=== PATIENT | female | born 1955 | race Caucasian/White ===

== ENCOUNTER 2020-11-09 15:43 | Inpatient (IN) | payer MEDICARE, SELFPAY ==
[2020-11-09 17:13] LABS: Hemoglobin 15.9 g/dL (12.0-16.0); White Blood Cell (WBC) Count 7.8 thou/uL (4.8-10.8)
[2020-11-09 17:35] LABS: ALT (SGPT) 86 U/L (8-55); AST (SGOT) 113 U/L (5-34); Alkaline Phosphatase 128 U/L (40-110); Anion Gap 16 mmol/L (10-20); BUN (Urea Nitrogen) 11 mg/dL (9.8-20.1); Bilirubin, Total 4.1 mg/dL (0.2-1.2); CK (CPK) 98 U/L (29-168); Calc. Creatinine Clearance 0 mL/min (70-130); Carbon Dioxide 25 mmol/L (23-31); Chloride 98 mmol/L (98-107); Globulin 4.1 g/dL (2.4-3.5); Glucose 188 mg/dL (80-115); Potassium 4.1 mmol/L (3.5-5.1); Protein, Total 8.1 g/dL (5.8-8.1); Sodium 135 mmol/L (136-145)
[2020-11-09 17:44] LABS: #Lymphocytes 0.9 thou/uL (1.20-3.40); #Monocytes 0.5 thou/uL (0.11-0.59); #Neutrophils 6.4 thou/uL (1.40-6.50); %Basophils 0.4 % (0.0-1.0); %Eosinophils 0.4 % (0.0-10.0); %Monocytes 5.9 % (0.0-10.0); %Neutrophils 82.3 % (42.0-75.0); MDiff Complete? YES; Macrocytosis SLIGHT = 6-15 cells (100X) (0-5/hpf); Mean Corpuscular HGB CONC 34.7 g/dL (32.0-36.0); Mean Corpuscular Hemoglobin 36.9 pg (27.0-31.0); Mean Platelet Volume 8.6 fL (7.4-10.4); Platelet Count 104 thou/uL (130-400); Platelet Morphology Comment Appears Decreased; RBC Distribution Width 12.8 % (11.5-14.5)
[2020-11-09] MEDS ORDERED: Ketorolac Tromethamine 30 MG/ML VIAL ONE (19:26)
[2020-11-09] MEDS ORDERED: Morphine 4 MG/ML VIAL ONE (19:26)
[2020-11-09] MEDS ORDERED: hydrALAZINE 20 MG/ML VIAL SLOW IVP PRN (19:31)
[2020-11-09] MEDS ORDERED: Dextrose 50% Abboject 50 ML SYRINGE SLOW IVP PRN (19:31)
[2020-11-09] MEDS ORDERED: Ondansetron PF 4 MG/2 ML Vial IVP PRN (19:31)
[2020-11-09] MEDS ORDERED: Morphine 2 MG/ML VIAL SLOW IVP PRN (19:31)
[2020-11-09] MEDS ORDERED: Dextrose 5% in Water 1,000 ML IV PRN (19:31)
[2020-11-09] MEDS ORDERED: Cyclobenzaprine 10 MG TAB PO PRN (19:37)
[2020-11-09] MEDS ORDERED: traMADol HCl 50 MG TAB PO PRN (19:37)
[2020-11-09 20:42] LABS: Magnesium 1.5 mg/dL (1.6-2.6); Phosphorus 3.1 mg/dL (2.3-4.7)
[2020-11-09] MEDS: Sodium Chloride 0.9% 1,000 ML IV SCH (21:44)
[2020-11-09] MEDS: Senokot S 8.6-50 MG TAB PO SCH (21:47)
[2020-11-09] MEDS: Famotidine 20 MG TAB PO SCH (21:47)
[2020-11-10] MEDS: traMADol HCl 50 MG TAB PO SCH ×5 (00:05→23:28)
[2020-11-10] MEDS: Acetaminophen 500 MG TAB PO SCH ×5 (00:06→23:28)
[2020-11-10] MEDS: Ketorolac Tromethamine 30 MG/ML VIAL IVP SCH ×5 (00:06→23:28)
[2020-11-10 02:30] LABS: SARS-CoV-2 NAA Rapid Test Not Detected (NotDetected)
[2020-11-10] MEDS: Sodium Chloride 0.9% 1,000 ML IV SCH ×3 (04:05→13:16)
[2020-11-10 04:47] LABS: #Basophils 0.1 thou/uL (0.0-0.2); #Lymphocytes 1.9 thou/uL (1.20-3.40); #Monocytes 0.4 thou/uL (0.11-0.59); #Neutrophils 3.7 thou/uL (1.40-6.50); %Basophils 0.9 % (0.0-1.0); %Eosinophils 0.4 % (0.0-10.0); %Lymphocytes 31.5 % (21.0-51.0); %Monocytes 6.5 % (0.0-10.0); %Neutrophils 60.6 % (42.0-75.0); Hemoglobin 12.3 g/dL (12.0-16.0); Mean Corpuscular HGB CONC 34.8 g/dL (32.0-36.0); Mean Corpuscular Hemoglobin 36.8 pg (27.0-31.0); Mean Platelet Volume 8.4 fL (7.4-10.4); Platelet Count 100 thou/uL (130-400); RBC Distribution Width 12.8 % (11.5-14.5); Red Blood Cell (RBC) Count 3.34 mill/uL (4.20-5.40); White Blood Cell (WBC) Count 6.1 thou/uL (4.8-10.8)
[2020-11-10 05:10] LABS: Phosphorus 4.1 mg/dL (2.3-4.7)
[2020-11-10 05:13] LABS: Anion Gap 12 mmol/L (10-20); BUN (Urea Nitrogen) 15 mg/dL (9.8-20.1); Calc. Creatinine Clearance 90 mL/min (70-130); Calcium 8.4 mg/dL (7.8-10.44); Carbon Dioxide 25 mmol/L (23-31); Chloride 101 mmol/L (98-107); Glucose 151 mg/dL (80-115); Magnesium 1.7 mg/dL (1.6-2.6); Potassium 4.7 mmol/L (3.5-5.1); Sodium 133 mmol/L (136-145)
[2020-11-10] MEDS: Polyethylene Glycol 3350 17 GM Packet PO SCH (08:13)
[2020-11-10] MEDS: Senokot S 8.6-50 MG TAB PO SCH ×2 (08:13→20:28)
[2020-11-10] MEDS: Famotidine 20 MG TAB PO SCH ×2 (08:13→20:28)
[2020-11-10] MEDS ORDERED: Magnesium Sulfate 3 GM in Sodium Chloride 0.9% 100 ML IVPB SCH (09:00)
[2020-11-10] MEDS ORDERED: levETIRAcetam 500 MG TAB PO SCH ×2 (09:00)
[2020-11-10] MEDS ORDERED: Fentanyl 100 MCG/2 ML VIAL ONE (10:38)
[2020-11-10] MEDS: levETIRAcetam 500 MG TAB PO SCH ×2 (10:57→20:28)
[2020-11-10] MEDS ORDERED: Tranexamic Acid 1,000 MG/10 ML VIAL ONE (11:46)
[2020-11-10] MEDS ORDERED: PROPOFOL 200 MG/20 ML VIAL ONE (12:08)
[2020-11-10] MEDS ORDERED: Lidocaine 1% PF 5 ML VIAL ONE (12:08)
[2020-11-10] MEDS ORDERED: Glycopyrrolate 0.2 MG/ML 5 ML SYRINGE ONE (12:08)
[2020-11-10] MEDS ORDERED: Rocuronium Bromide 10 MG/ML (10ML VIAL) ONE (12:08)
[2020-11-10] MEDS ORDERED: Dexamethasone 20 MG/5 ML VIAL ONE (12:08)
[2020-11-10] MEDS ORDERED: PHENYLEPHRINE-NS 100 MCG/ML 10 ML SYRINGE ONE (12:08)
[2020-11-10] MEDS ORDERED: Ondansetron HCl/PF 4 MG/2 ML Vial IVP PRN (14:26)
[2020-11-10] MEDS ORDERED: Promethazine HCl 25 MG/ML VIAL IM PRN (14:26)
[2020-11-10] MEDS ORDERED: Promethazine HCl 25 MG/ML VIAL SLOW IVP PRN (14:26)
[2020-11-10] MEDS ORDERED: Vancomycin 1 GM in Premix Bag 1 BAG IVPB SCH (21:00)
[2020-11-10] MEDS: CEFAZOLIN 2 GM in Premix Bag 1 BAG IVPB SCH (22:19)
[2020-11-11 00:17] LABS: Bacteria/HPF None Seen HPF (None Seen); Bilirubin Negative (Negative); Blood, Urine Trace (Negative); Clarity Clear (Clear); Glucose, Urine (Dipstick) Normal (Negative); Ketone, Urine Negative (Negative); Leukocyte Negative Leu/uL (Negative); Mucous/LPF 2+ LPF (<2+); Nitrite Negative (Negative); Protein, Urine (Dipstick) 30 mg/dL (Neg-Trace); Specific Gravity, Urine 1.043 (1.002-1.036); Squamous Epithelial 0-3 HPF (0-3); Urobilinogen 6 mg/dL (Less than 2)
[2020-11-11 00:19] LABS: Urine Culture Reflex Yes Yes
[2020-11-11 05:27] LABS: #Lymphocytes 1.7 thou/uL (1.20-3.40); #Monocytes 0.7 thou/uL (0.11-0.59); #Neutrophils 4.8 thou/uL (1.40-6.50); %Basophils 0.2 % (0.0-1.0); %Eosinophils 0.1 % (0.0-10.0); %Lymphocytes 23.7 % (21.0-51.0); %Monocytes 10.2 % (0.0-10.0); %Neutrophils 65.9 % (42.0-75.0); Hemoglobin 9.5 g/dL (12.0-16.0); Mean Corpuscular HGB CONC 33.7 g/dL (32.0-36.0); Mean Corpuscular Hemoglobin 35.6 pg (27.0-31.0); Mean Platelet Volume 8.5 fL (7.4-10.4); Platelet Count 121 thou/uL (130-400); RBC Distribution Width 13.1 % (11.5-14.5); Red Blood Cell (RBC) Count 2.65 mill/uL (4.20-5.40); White Blood Cell (WBC) Count 7.3 thou/uL (4.8-10.8)
[2020-11-11] MEDS: traMADol HCl 50 MG TAB PO SCH ×3 (05:38→18:30)
[2020-11-11] MEDS: Acetaminophen 500 MG TAB PO SCH ×3 (05:38→18:22)
[2020-11-11] MEDS: CEFAZOLIN 2 GM in Premix Bag 1 BAG IVPB SCH (05:39)
[2020-11-11] MEDS: Ketorolac Tromethamine 30 MG/ML VIAL IVP SCH ×3 (05:39→18:29)
[2020-11-11 05:50] LABS: Anion Gap 10 mmol/L (10-20); BUN (Urea Nitrogen) 23 mg/dL (9.8-20.1); CK (CPK) 217 U/L (29-168); Calc. Creatinine Clearance 76 mL/min (70-130); Calcium 7.8 mg/dL (7.8-10.44); Carbon Dioxide 24 mmol/L (23-31); Chloride 104 mmol/L (98-107); Glucose 135 mg/dL (80-115); Magnesium 1.9 mg/dL (1.6-2.6); Phosphorus 3.8 mg/dL (2.3-4.7); Potassium 5.2 mmol/L (3.5-5.1); Sodium 133 mmol/L (136-145)
[2020-11-11] MEDS ORDERED: Sodium Chloride 0.9% 500 ML IV SCH (07:00)
[2020-11-11] MEDS: Polyethylene Glycol 3350 17 GM Packet PO SCH (08:56)
[2020-11-11] MEDS: Senokot S 8.6-50 MG TAB PO SCH ×2 (08:56→20:31)
[2020-11-11] MEDS: Famotidine 20 MG TAB PO SCH ×2 (08:56→20:31)
[2020-11-11] MEDS: levETIRAcetam 500 MG TAB PO SCH ×2 (08:57→20:31)
[2020-11-11] MEDS: Dextrose 5 % And 0.9 % NaCl 1,000 ML IV SCH (17:29)
[2020-11-12] MEDS: Acetaminophen 500 MG TAB PO SCH ×3 (00:01→12:08)
[2020-11-12] MEDS: Dextrose 5 % And 0.9 % NaCl 1,000 ML IV SCH ×2 (00:01→07:15)
[2020-11-12] MEDS: traMADol HCl 50 MG TAB PO SCH ×3 (00:02→12:12)
[2020-11-12] MEDS: Ketorolac Tromethamine 30 MG/ML VIAL IVP SCH ×2 (00:02→05:22)
[2020-11-12] MEDS: Famotidine 20 MG TAB PO SCH ×2 (09:20→21:10)
[2020-11-12] MEDS: levETIRAcetam 500 MG TAB PO SCH ×2 (09:20→21:10)
[2020-11-12] MEDS: Senokot S 8.6-50 MG TAB PO SCH ×2 (09:22→21:10)
[2020-11-12] MEDS: Polyethylene Glycol 3350 17 GM Packet PO SCH (09:22)
[2020-11-12 10:38] LABS: #Eosinphils 0.1 thou/uL (0.0-0.7); #Lymphocytes 2.1 thou/uL (1.20-3.40); #Monocytes 0.5 thou/uL (0.11-0.59); #Neutrophils 3.6 thou/uL (1.40-6.50); %Basophils 0.6 % (0.0-1.0); %Eosinophils 1.3 % (0.0-10.0); %Lymphocytes 32.8 % (21.0-51.0); %Monocytes 8.2 % (0.0-10.0); %Neutrophils 57.1 % (42.0-75.0); Hemoglobin 8.2 g/dL (12.0-16.0); Mean Corpuscular Hemoglobin 37.8 pg (27.0-31.0); Mean Platelet Volume 8.2 fL (7.4-10.4); Platelet Count 123 thou/uL (130-400); RBC Distribution Width 13.1 % (11.5-14.5); Red Blood Cell (RBC) Count 2.16 mill/uL (4.20-5.40); White Blood Cell (WBC) Count 6.3 thou/uL (4.8-10.8)
[2020-11-12 11:06] LABS: Anion Gap 6 mmol/L (10-20); BUN (Urea Nitrogen) 12 mg/dL (9.8-20.1); Calc. Creatinine Clearance 101 mL/min (70-130); Calcium 7.7 mg/dL (7.8-10.44); Carbon Dioxide 24 mmol/L (23-31); Chloride 105 mmol/L (98-107); Glucose 173 mg/dL (80-115); Magnesium 1.7 mg/dL (1.6-2.6); Phosphorus 1.6 mg/dL (2.3-4.7); Potassium 4.4 mmol/L (3.5-5.1); Sodium 131 mmol/L (136-145)
[2020-11-12] MEDS ORDERED: Magnesium Sulfate 2 GM in Sodium Chloride 0.9% 100 ML IV SCH (11:30)
[2020-11-12] MEDS ORDERED: Sodium Phosphate 30 MMOL in Sodium Chloride 0.9% 250 ML 250 ML IVPB SCH ×2 (11:30→23:59)
[2020-11-12] MEDS ORDERED: Magnesium 2 GM/50 ML 2 GM in Premix Bag 1 BAG IVPB SCH (12:30)
[2020-11-12] MEDS ORDERED: Dextrose 5 % And 0.9 % NaCl 1,000 ML IV SCH (15:45)
[2020-11-12] MEDS ORDERED: Acetaminophen/Codeine 30-300mg Tablet PO PRN (17:02)
[2020-11-12] MEDS: Acetaminophen 325 MG TAB PO SCH ×2 (18:44→23:41)
[2020-11-12 19:20] LABS: Calcium, Ionized (arterial) 0.88 mmol/L (1.12-1.30); Hemoglobin (Hb) 7.9 g/dL (12.0-16.0); Potassium - ABG Lab 3.76 mmol/L (3.70-5.30)
[2020-11-12 19:41] LABS: O2 Tension (PaO2), arterial 44.9 mmHg (> 80.0)
[2020-11-12 19:42] LABS: Puncture Site LBA
[2020-11-12 20:18] LABS: Actual Bicarbonate (HCO3a) 24.4 mEq/L (22-28); Analyzer IN Cardio ER; Base Excess (BEa) 0.2 mEq/L (-2.0 to +3.0); CO2 Tension 37.6 mmHg (35.0-45.0); Carboxyhemoglobin (COHb) 0.4 gm% (0.0-3.0); Hemoglobin (Hb) 8.3 g/dL (12.0-16.0); Potassium - ABG Lab 4.05 mmol/L (3.70-5.30); pH, Arterial 7.43 (7.35-7.45)
[2020-11-12 20:28] LABS: O2 Tension (PaO2), arterial 58.4 mmHg (> 80.0); Puncture Site RBA
[2020-11-12] MEDS ORDERED: Calcium Chloride 1 GM/10 ML Abboject SYRINGE IVP SCH (21:00)
[2020-11-12] MEDS ORDERED: Ascorbic Acid 500 mg Chewable Tablet PO SCH (21:00)
[2020-11-12] MEDS: Aspirin 81 mg Enteric Coated Tablet PO SCH (21:09)
[2020-11-13 05:34] LABS: Hemoglobin A1c 4.6 % (4.0-6.0)
[2020-11-13] MEDS: Acetaminophen 325 MG TAB PO SCH ×3 (05:39→17:22)
[2020-11-13 06:01] LABS: Anion Gap 10 mmol/L (10-20); BUN (Urea Nitrogen) 7 mg/dL (9.8-20.1); CK (CPK) 95 U/L (29-168); Calc. Creatinine Clearance 110 mL/min (70-130); Calcium 8.1 mg/dL (7.8-10.44); Carbon Dioxide 23 mmol/L (23-31); Chloride 105 mmol/L (98-107); Glucose 120 mg/dL (80-115); Magnesium 1.4 mg/dL (1.6-2.6); Phosphorus 4.1 mg/dL (2.3-4.7); Potassium 4.1 mmol/L (3.5-5.1); Sodium 134 mmol/L (136-145)
[2020-11-13] MEDS ORDERED: Magnesium 2 GM/50 ML 2 GM in Premix Bag 1 BAG IVPB SCH (07:15)
[2020-11-13] MEDS ORDERED: Ferrous Sulfate 325 MG TAB PO SCH (08:00)
[2020-11-13] MEDS: Senokot S 8.6-50 MG TAB PO SCH ×2 (08:35→21:49)
[2020-11-13] MEDS: levETIRAcetam 500 MG TAB PO SCH ×2 (08:35→21:49)
[2020-11-13] MEDS: Famotidine 20 MG TAB PO SCH ×2 (08:35→21:49)
[2020-11-13] MEDS: Aspirin 81 mg Enteric Coated Tablet PO SCH (08:35)
[2020-11-13] MEDS: Multivitamin W/ Minerals 1 TAB PO SCH (08:35)
[2020-11-13] MEDS: Ascorbic Acid 500 mg Chewable Tablet PO SCH ×2 (08:36→21:49)
[2020-11-13] MEDS: Ferrous Sulfate 325 MG TAB PO SCH ×2 (08:36→17:43)
[2020-11-13] MEDS: Polyethylene Glycol 3350 17 GM Packet PO SCH (08:42)
[2020-11-13 13:34] LABS: Vitamin D, 25 Hydroxy 10.8 ng/ml (> 30.0)
[2020-11-13] MEDS ORDERED: Ergocalciferol 1.25 MG(50,000 UNITS) CAP PO SCH (16:00)
[2020-11-13] MEDS: Enoxaparin Sodium 40 MG/0.4 ML SYRINGE SC SCH (21:49)
[2020-11-14] MEDS: Acetaminophen 325 MG TAB PO SCH ×5 (00:09→23:49)
[2020-11-14 05:46] LABS: #Eosinphils 0.1 thou/uL (0.0-0.7); #Lymphocytes 2.2 thou/uL (1.20-3.40); #Monocytes 0.3 thou/uL (0.11-0.59); #Neutrophils 2.2 thou/uL (1.40-6.50); %Basophils 0.4 % (0.0-1.0); %Eosinophils 2.3 % (0.0-10.0); %Monocytes 6.3 % (0.0-10.0); Hemoglobin 7.9 g/dL (12.0-16.0); Mean Corpuscular HGB CONC 34.9 g/dL (32.0-36.0); Mean Corpuscular Hemoglobin 37.6 pg (27.0-31.0); Mean Platelet Volume 9.2 fL (7.4-10.4); Platelet Count 97 thou/uL (130-400); RBC Distribution Width 13.6 % (11.5-14.5); White Blood Cell (WBC) Count 4.8 thou/uL (4.8-10.8)
[2020-11-14] MEDS ORDERED: Dextrose 5 % And 0.9 % NaCl 1,000 ML IV SCH ×2 (06:30→06:55)
[2020-11-14] MEDS ORDERED: Sodium Chloride 0.9% 500 ML IV SCH (06:30)
[2020-11-14 06:35] LABS: Anion Gap 9 mmol/L (10-20); BUN (Urea Nitrogen) 7 mg/dL (9.8-20.1); Calc. Creatinine Clearance 112 mL/min (70-130); Calcium 7.6 mg/dL (7.8-10.44); Carbon Dioxide 27 mmol/L (23-31); Chloride 102 mmol/L (98-107); Glucose 119 mg/dL (80-115); Magnesium 1.6 mg/dL (1.6-2.6); Phosphorus 2.6 mg/dL (2.3-4.7); Potassium 4.1 mmol/L (3.5-5.1); Sodium 134 mmol/L (136-145)
[2020-11-14] MEDS ORDERED: Magnesium 2 GM/50 ML 2 GM in Premix Bag 1 BAG IVPB SCH (07:00)
[2020-11-14] MEDS: Ferrous Sulfate 325 MG TAB PO SCH ×3 (08:52→21:38)
[2020-11-14] MEDS: Ascorbic Acid 500 mg Chewable Tablet PO SCH ×2 (09:58→21:38)
[2020-11-14] MEDS: Famotidine 20 MG TAB PO SCH ×2 (09:58→21:37)
[2020-11-14] MEDS: Folic Acid 1 MG TAB PO SCH (09:58)
[2020-11-14] MEDS: Multivitamin W/ Minerals 1 TAB PO SCH (09:58)
[2020-11-14] MEDS: levETIRAcetam 500 MG TAB PO SCH ×2 (09:59→21:37)
[2020-11-14] MEDS: Senokot S 8.6-50 MG TAB PO SCH ×2 (09:59→21:37)
[2020-11-14] MEDS: Polyethylene Glycol 3350 17 GM Packet PO SCH (10:00)
[2020-11-14] MEDS ORDERED: Sodium Phosphate 30 MMOL in Sodium Chloride 0.9% 250 ML 250 ML IVPB SCH (12:30)
[2020-11-14] MEDS: Ibuprofen 200 MG TAB PO PRN (17:57)
[2020-11-14] MEDS: Enoxaparin Sodium 40 MG/0.4 ML SYRINGE SC SCH (21:38)
[2020-11-15] MEDS: Acetaminophen 325 MG TAB PO SCH ×4 (05:46→23:49)
[2020-11-15] MEDS: levETIRAcetam 500 MG TAB PO SCH ×2 (08:25→21:07)
[2020-11-15] MEDS: Ascorbic Acid 500 mg Chewable Tablet PO SCH ×2 (08:25→21:07)
[2020-11-15] MEDS: Ferrous Sulfate 325 MG TAB PO SCH ×2 (08:25→21:07)
[2020-11-15] MEDS: Multivitamin W/ Minerals 1 TAB PO SCH (08:25)
[2020-11-15] MEDS: Famotidine 20 MG TAB PO SCH ×2 (08:25→21:07)
[2020-11-15] MEDS: Senokot S 8.6-50 MG TAB PO SCH ×2 (08:25→21:07)
[2020-11-15] MEDS: Folic Acid 1 MG TAB PO SCH (08:25)
[2020-11-15] MEDS: Polyethylene Glycol 3350 17 GM Packet PO SCH (08:26)
[2020-11-15 11:35] LABS: Anion Gap 11 mmol/L (10-20); BUN (Urea Nitrogen) 10 mg/dL (9.8-20.1); Calc. Creatinine Clearance 97 mL/min (70-130); Calcium 8.1 mg/dL (7.8-10.44); Carbon Dioxide 27 mmol/L (23-31); Chloride 103 mmol/L (98-107); Glucose 209 mg/dL (80-115); Magnesium 1.6 mg/dL (1.6-2.6); Phosphorus 2.7 mg/dL (2.3-4.7); Potassium 3.7 mmol/L (3.5-5.1); Sodium 137 mmol/L (136-145)
[2020-11-15 12:21] LABS: Band 2 % (5-11); Eosinophils 5 % (0-10); Hemoglobin 9.2 g/dL (12.0-16.0); Lymphocytes 39 % (21-51); MDiff Complete? YES; Macrocytosis MODERATE=16-30 cells (100X) (0-5/hpf); Mean Corpuscular HGB CONC 33.4 g/dL (32.0-36.0); Mean Corpuscular Hemoglobin 36.8 pg (27.0-31.0); Mean Platelet Volume 8.1 fL (7.4-10.4); Monocytes 3 % (0-10); Neutrophil 51 % (42-75); Nucleated RBC 1 % (0); Platelet Count 168 thou/uL (130-400); Platelet Morphology Comment Appears Adequate; Polychromasia MODERATE = 3-4 cells (100X) (0-2/hpf); RBC Distribution Width 15.4 % (11.5-14.5); Red Blood Cell (RBC) Count 2.49 mill/uL (4.20-5.40); White Blood Cell (WBC) Count 5.5 thou/uL (4.8-10.8)
[2020-11-15] MEDS ORDERED: Sodium Phosphate 30 MMOL in Sodium Chloride 0.9% 250 ML 250 ML IVPB SCH (14:30)
[2020-11-15] MEDS ORDERED: Magnesium Sulfate 3 GM in Sodium Chloride 0.9% 100 ML IV SCH (14:30)
[2020-11-15] MEDS ORDERED: CEFAZOLIN 2 GM in Premix Bag 1 BAG IVPB SCH (15:30)
[2020-11-16] MEDS: Acetaminophen 325 MG TAB PO SCH ×3 (05:24→17:07)
[2020-11-16] MEDS: Ibuprofen 200 MG TAB PO PRN (05:24)
[2020-11-16] MEDS: Multivitamin W/ Minerals 1 TAB PO SCH (08:55)
[2020-11-16] MEDS: Ascorbic Acid 500 mg Chewable Tablet PO SCH ×2 (08:55→20:58)
[2020-11-16] MEDS: Ferrous Sulfate 325 MG TAB PO SCH ×2 (08:55→20:58)
[2020-11-16] MEDS: Polyethylene Glycol 3350 17 GM Packet PO SCH (08:55)
[2020-11-16] MEDS: Famotidine 20 MG TAB PO SCH ×2 (08:55→20:58)
[2020-11-16] MEDS: levETIRAcetam 500 MG TAB PO SCH (08:55)
[2020-11-16] MEDS: Senokot S 8.6-50 MG TAB PO SCH ×2 (08:55→20:55)
[2020-11-16] MEDS: Folic Acid 1 MG TAB PO SCH (08:55)
[2020-11-16] MEDS ORDERED: Midazolam HCl 2 mg/2 ml Vial ONE (09:59)
[2020-11-16] MEDS ORDERED: Fentanyl 100 MCG/2 ML VIAL ONE ×2 (09:59→10:17)
[2020-11-16] MEDS ORDERED: Fentanyl 100 MCG/2 ML VIAL SLOW IVP PRN (10:21)
[2020-11-16] MEDS ORDERED: Sodium Chloride 0.9% 100 ML ONE (10:22)
[2020-11-16] MEDS ORDERED: Tranexamic Acid 1,000 MG/10 ML VIAL ONE (10:22)
[2020-11-16] MEDS ORDERED: Vancomycin 1 GM/200 ML BAG ONE (10:22)
[2020-11-16] MEDS ORDERED: traMADol HCl 50 MG TAB PO PRN ×2 (10:30)
[2020-11-16] MEDS ORDERED: Promethazine HCl 25 MG/ML VIAL IM PRN ×2 (10:30→13:26)
[2020-11-16] MEDS ORDERED: Zolpidem Tartrate 5 MG TAB PO PRN (10:30)
[2020-11-16] MEDS ORDERED: Ropivacaine 0.2% 550 ML 550 ML NERVE BLCK SCH (10:30)
[2020-11-16] MEDS ORDERED: Ketorolac Tromethamine 30 MG/ML VIAL IVP PRN (10:30)
[2020-11-16] MEDS ORDERED: Ondansetron PF 4 MG/2 ML Vial IVP PRN (10:30)
[2020-11-16] MEDS ORDERED: HYDROcodone/Acetaminophen 10/325 mg Tablet PO PRN ×2 (10:30)
[2020-11-16] MEDS ORDERED: Dexamethasone 20 MG/5 ML VIAL ONE (10:51)
[2020-11-16] MEDS ORDERED: Rocuronium Bromide 10 MG/ML (10ML VIAL) ONE (10:51)
[2020-11-16] MEDS ORDERED: Ropivacaine 0.5% HCl/PF (150 MG/30 ML VIAL) ONE (10:51)
[2020-11-16] MEDS ORDERED: Lidocaine 1% PF 5 ML VIAL ONE (10:51)
[2020-11-16] MEDS ORDERED: PROPOFOL 200 MG/20 ML VIAL ONE (10:51)
[2020-11-16] MEDS ORDERED: Ropivacaine 2% HCl/PF (20 MG/10 ML VIAL) ONE (10:51)
[2020-11-16] MEDS ORDERED: PHENYLEPHRINE-NS 100 MCG/ML 10 ML SYRINGE ONE ×3 (10:51→12:54)
[2020-11-16] MEDS ORDERED: Ondansetron PF 4 MG/2 ML Vial ONE (10:51)
[2020-11-16] MEDS ORDERED: Glycopyrrolate 0.2 MG/ML 5 ML SYRINGE ONE (10:51)
[2020-11-16] MEDS ORDERED: Calcium Chloride 1 GM/10 ML Abboject SYRINGE ONE (10:51)
[2020-11-16] MEDS ORDERED: Ondansetron HCl/PF 4 MG/2 ML Vial IVP PRN (13:26)
[2020-11-16] MEDS ORDERED: Promethazine HCl 25 MG/ML VIAL SLOW IVP PRN (13:26)
[2020-11-16] MEDS: CEFAZOLIN 2 GM in Premix Bag 1 BAG IVPB SCH (17:07)
[2020-11-16] MEDS: levETIRAcetam 500 mg/5 ml Oral Solution PO SCH (20:58)
[2020-11-17] MEDS: Acetaminophen 325 MG TAB PO SCH ×5 (02:16→23:35)
[2020-11-17] MEDS: CEFAZOLIN 2 GM in Premix Bag 1 BAG IVPB SCH (02:30)
[2020-11-17 05:57] LABS: #Monocytes 0.6 thou/uL (0.11-0.59); #Neutrophils 3.5 thou/uL (1.40-6.50); %Eosinophils 0.6 % (0.0-10.0); %Monocytes 9.1 % (0.0-10.0); %Neutrophils 58.3 % (42.0-75.0); Hemoglobin 9.8 g/dL (12.0-16.0); Mean Corpuscular HGB CONC 33.3 g/dL (32.0-36.0); Mean Corpuscular Hemoglobin 37.2 pg (27.0-31.0); Platelet Count 155 thou/uL (130-400); RBC Distribution Width 16.8 % (11.5-14.5); Red Blood Cell (RBC) Count 2.64 mill/uL (4.20-5.40); White Blood Cell (WBC) Count 6.1 thou/uL (4.8-10.8)
[2020-11-17 06:13] LABS: Anion Gap 10 mmol/L (10-20); BUN (Urea Nitrogen) 12 mg/dL (9.8-20.1); Calc. Creatinine Clearance 103 mL/min (70-130); Calcium 8.1 mg/dL (7.8-10.44); Carbon Dioxide 28 mmol/L (23-31); Chloride 104 mmol/L (98-107); Glucose 129 mg/dL (80-115); Magnesium 1.5 mg/dL (1.6-2.6); Phosphorus 2.9 mg/dL (2.3-4.7); Potassium 4.2 mmol/L (3.5-5.1); Sodium 138 mmol/L (136-145)
[2020-11-17] MEDS: Ascorbic Acid 500 mg Chewable Tablet PO SCH ×2 (09:31→20:47)
[2020-11-17] MEDS: Folic Acid 1 MG TAB PO SCH (09:31)
[2020-11-17] MEDS: Famotidine 20 MG TAB PO SCH ×2 (09:31→20:46)
[2020-11-17] MEDS: Ferrous Sulfate 325 MG TAB PO SCH ×2 (09:31→20:47)
[2020-11-17] MEDS: Multivitamin W/ Minerals 1 TAB PO SCH (09:32)
[2020-11-17] MEDS: Enoxaparin Sodium 40 MG/0.4 ML SYRINGE SC SCH (09:32)
[2020-11-17] MEDS: levETIRAcetam 500 mg/5 ml Oral Solution PO SCH ×2 (09:32→20:46)
[2020-11-17] MEDS: Polyethylene Glycol 3350 17 GM Packet PO SCH (09:32)
[2020-11-17] MEDS: Senokot S 8.6-50 MG TAB PO SCH ×2 (09:33→20:47)
[2020-11-17] MEDS: Ibuprofen 200 MG TAB PO PRN (13:32)
[2020-11-18] MEDS: Acetaminophen 325 MG TAB PO SCH ×2 (04:52→11:58)
[2020-11-18] MEDS: Polyethylene Glycol 3350 17 GM Packet PO SCH (09:06)
[2020-11-18] MEDS: Folic Acid 1 MG TAB PO SCH (09:06)
[2020-11-18] MEDS: Ascorbic Acid 500 mg Chewable Tablet PO SCH (09:06)
[2020-11-18] MEDS: Famotidine 20 MG TAB PO SCH (09:06)
[2020-11-18] MEDS: Enoxaparin Sodium 40 MG/0.4 ML SYRINGE SC SCH (09:06)
[2020-11-18] MEDS: Ferrous Sulfate 325 MG TAB PO SCH (09:06)
[2020-11-18] MEDS: levETIRAcetam 500 mg/5 ml Oral Solution PO SCH (09:06)
[2020-11-18] MEDS: Senokot S 8.6-50 MG TAB PO SCH (09:06)
[2020-11-18] MEDS: Multivitamin W/ Minerals 1 TAB PO SCH (09:06)
[2020-11-18] MEDS ORDERED: Iopamidol-370 76% 500 ML 1 ML ONE (10:27)
[2020-11-18] MEDS ORDERED: Lactated Ringer's 250 ML IV SCH (14:45)
[2020-11-18 16:34] VITALS: BP 133/68; TEMP 97.7
== END 2020-11-18 16:50 | disposition swing bed (61) | DRG 469 ==
LOC: ERS 15:43 → 2NO 19:31 → SURG A 11-10 15:53
PROVIDERS: ADMIT Surgery; ATTEND Surgery
PROC: 0SR9049 Replacement of Right Hip Joint with Ceramic on Polyethylene Synthetic Substitute, Cemented, Open Approach (ICD-10-PCS; 2020-11-10)
PROC: 0RRK00Z Replacement of Left Shoulder Joint with Reverse Ball and Socket Synthetic Substitute, Open Approach (ICD-10-PCS; principal; 2020-11-16)
PROC: 0LS40ZZ Reposition Left Upper Arm Tendon, Open Approach (ICD-10-PCS; 2020-11-16)
PROC: 30233N1 Transfusion of Nonautologous Red Blood Cells into Peripheral Vein, Percutaneous Approach (ICD-10-PCS; 2020-11-16)
DX: S42.202A Unspecified fracture of upper end of left humerus, initial encounter for closed fracture (principal); S72.011A Unspecified intracapsular fracture of right femur, initial encounter for closed fracture; Z20.822 Contact with and (suspected) exposure to COVID-19; M62.82 Rhabdomyolysis; E87.1 Hypo-osmolality and hyponatremia; N17.9 Acute kidney failure, unspecified; W18.30XA Fall on same level, unspecified, initial encounter; R29.6 Repeated falls; G40.909 Epilepsy, unspecified, not intractable, without status epilepticus; R40.0 Somnolence; E55.9 Vitamin D deficiency, unspecified; E53.8 Deficiency of other specified B group vitamins; R82.89 Other abnormal findings on cytological and histological examination of urine; R41.0 Disorientation, unspecified; R53.83 Other fatigue; E83.42 Hypomagnesemia; D64.9 Anemia, unspecified; Z90.710 Acquired absence of both cervix and uterus; Z79.899 Other long term (current) drug therapy
CPT/HCPCS: 36415; 36430; 36600; 70450; 70551; 71045; 71275; 72170; 76000; 80048; 80053; 81001; 82040; 82180; 82306; 82550; 82607; 82746; 82805; 83036; 83735; 83880; 83970; 84100; 84146; 84443; 84484; 85025; 86850; 86900; 86901; 87086; 93005; 93306; 93880; 94760; 95712; 95819; 95957; 96374; 96375; A4306; C1713; J0690; J1100; J1650; J1885; J2250; J2270; J2405; J2704; J2795; J3010; J3370; J3475; J3490; J7050; P9016; Q9967; U0002; U0003; U0005

== ENCOUNTER 2021-01-10 15:47 | Inpatient (IN) | payer MEDICARE, SELFPAY ==
[~2021-01-10 15:47] MED LIST: Lidocaine 2% Jelly 5 ML TUBE ONE; Vancomycin 1 GM/200 ML BAG ONE
[2021-01-11] MEDS ORDERED: Acetaminophen 325 MG TAB PO PRN (02:02)
[2021-01-11] MEDS ORDERED: Ondansetron PF 4 MG/2 ML Vial IVP PRN (02:02)
[2021-01-11 03:03] LABS: Troponin I 0.011 ng/mL (< 0.028)
[2021-01-11] MEDS ORDERED: Hydrocortisone Sod Succ/PF 100 mg/2 ml Vial IVP SCH (04:30)
[2021-01-11 04:54] LABS: Anion Gap 11 mmol/L (10-20); BUN (Urea Nitrogen) 9 mg/dL (9.8-20.1); Calc. Creatinine Clearance 47 mL/min (70-130); Calcium 8.8 mg/dL (7.8-10.44); Carbon Dioxide 26 mmol/L (23-31); Chloride 101 mmol/L (98-107); Glucose 116 mg/dL (80-115); Potassium 4.4 mmol/L (3.5-5.1); Sodium 134 mmol/L (136-145)
[2021-01-11 04:56] LABS: ALT (SGPT) 35 U/L (8-55); AST (SGOT) 70 U/L (5-34); Albumin 3.1 g/dL (3.4-4.8); Alkaline Phosphatase 87 U/L (40-110); Bilirubin, Direct 0.9 mg/dL (0.1-0.3); Bilirubin, Total 1.9 mg/dL (0.2-1.2); Protein, Total 6.5 g/dL (5.8-8.1)
[2021-01-11 05:05] LABS: Troponin I 0.015 ng/mL (< 0.028)
[2021-01-11 05:32] LABS: Eosinophils 2 % (0-10); Lymphocytes 43 % (21-51); MDiff Complete? YES; Macrocytosis MODERATE=16-30 cells (100X) (0-5/hpf); Mean Corpuscular HGB CONC 34.2 g/dL (32.0-36.0); Mean Corpuscular Hemoglobin 36.5 pg (27.0-31.0); Mean Platelet Volume 8.7 fL (7.4-10.4); Monocytes 4 % (0-10); Neutrophil 40 % (42-75); Platelet Count 85 thou/uL (130-400); Platelet Morphology Comment Appears Decreased; RBC Distribution Width 13.5 % (11.5-14.5); Reactive Lymphocytes 11 % (0-10); Red Blood Cell (RBC) Count 3.58 mill/uL (4.20-5.40); White Blood Cell (WBC) Count 4.7 thou/uL (4.8-10.8)
[2021-01-11] MEDS ORDERED: levETIRAcetam 500 MG TAB PO SCH (09:00)
[2021-01-11] MEDS ORDERED: Midodrine HCl 5 MG TAB PO SCH (09:00)
[2021-01-11] MEDS: levETIRAcetam 500 mg/5 ml Oral Solution PO SCH ×2 (09:53→20:45)
[2021-01-11] MEDS: Hydrocortisone Sod Succ/PF 100 mg/2 ml Vial IVP SCH ×3 (11:30→23:28)
[2021-01-11] MEDS ORDERED: Furosemide 20 MG/2 ML VIAL SLOW IVP SCH (11:30)
[2021-01-11 12:48] LABS: Cardiac Risk 5.8 (Less than 4.5)
[2021-01-11 16:28] LABS: SARS-CoV-2 PCR by NAA Not Detected (NotDetected)
[2021-01-11] MEDS ORDERED: Furosemide 40 MG/4 ML VIAL SLOW IVP SCH (17:15)
[2021-01-12] MEDS: Hydrocortisone Sod Succ/PF 100 mg/2 ml Vial IVP SCH ×4 (05:32→23:30)
[2021-01-12 05:34] LABS: #Monocytes 0.1 thou/uL (0.11-0.59); #Neutrophils 2.2 thou/uL (1.40-6.50); %Basophils 0.3 % (0.0-1.0); %Eosinophils 0.1 % (0.0-10.0); %Monocytes 3.7 % (0.0-10.0); %Neutrophils 64.9 % (42.0-75.0); Hemoglobin 12.2 g/dL (12.0-16.0); Mean Corpuscular HGB CONC 33.1 g/dL (32.0-36.0); Mean Corpuscular Hemoglobin 35.6 pg (27.0-31.0); Mean Platelet Volume 9.2 fL (7.4-10.4); Platelet Count 84 thou/uL (130-400); RBC Distribution Width 13.5 % (11.5-14.5); Red Blood Cell (RBC) Count 3.43 mill/uL (4.20-5.40); White Blood Cell (WBC) Count 3.3 thou/uL (4.8-10.8)
[2021-01-12 05:49] LABS: ALT (SGPT) 37 U/L (8-55); AST (SGOT) 65 U/L (5-34); Albumin 2.9 g/dL (3.4-4.8); Alkaline Phosphatase 84 U/L (40-110); Anion Gap 12 mmol/L (10-20); BUN (Urea Nitrogen) 14 mg/dL (9.8-20.1); Bilirubin, Total 1.1 mg/dL (0.2-1.2); Calc. Creatinine Clearance 83 mL/min (70-130); Calcium 8.5 mg/dL (7.8-10.44); Carbon Dioxide 27 mmol/L (23-31); Chloride 101 mmol/L (98-107); Globulin 3.6 g/dL (2.4-3.5); Glucose 175 mg/dL (80-115); Iron 117 ug/dL (50-170); Iron Binding Capacity, Total 114 mcg/dL (265-497); Potassium 3.9 mmol/L (3.5-5.1); Protein, Total 6.5 g/dL (5.8-8.1); Sodium 136 mmol/L (136-145)
[2021-01-12 06:11] LABS: Thyroid Stimulating Hormone 0.5788 uIU/mL (0.35-4.94)
[2021-01-12] MEDS ORDERED: Furosemide 40 MG/4 ML VIAL SLOW IVP SCH ×2 (09:00→15:00)
[2021-01-12] MEDS: levETIRAcetam 500 mg/5 ml Oral Solution PO SCH ×2 (09:16→19:55)
[2021-01-13 05:38] LABS: Hemoglobin 12.3 g/dL (12.0-16.0); Mean Corpuscular HGB CONC 33.4 g/dL (32.0-36.0); Mean Corpuscular Hemoglobin 36.2 pg (27.0-31.0); Mean Platelet Volume 9.2 fL (7.4-10.4); Platelet Count 79 thou/uL (130-400); RBC Distribution Width 13.8 % (11.5-14.5)
[2021-01-13] MEDS: Hydrocortisone Sod Succ/PF 100 mg/2 ml Vial IVP SCH ×4 (05:49→23:38)
[2021-01-13] MEDS: Furosemide 40 MG/4 ML VIAL SLOW IVP SCH ×2 (05:49→14:39)
[2021-01-13 06:00] LABS: Anion Gap 9 mmol/L (10-20); BUN (Urea Nitrogen) 14 mg/dL (9.8-20.1); CRP (Inflammatory) 0.87 mg/dL (= or < 0.5); Calc. Creatinine Clearance 91 mL/min (70-130); Calcium 8.4 mg/dL (7.8-10.44); Carbon Dioxide 34 mmol/L (23-31); Chloride 99 mmol/L (98-107); Glucose 220 mg/dL (80-115); Magnesium 1.4 mg/dL (1.6-2.6); Sodium 139 mmol/L (136-145)
[2021-01-13 06:08] LABS: Potassium 2.8 mmol/L (3.5-5.1)
[2021-01-13] MEDS ORDERED: Electrolyte Replacement Protocol 1 EACH FS PRN (06:24)
[2021-01-13] MEDS ORDERED: Magnesium Sulfate 4 GM in Sodium Chloride 0.9% 250 ML 250 ML IVPB SCH (06:30)
[2021-01-13 06:47] LABS: Band 2 % (5-11); Lymphocytes 23 % (21-51); MDiff Complete? YES; Macrocytosis SLIGHT = 6-15 cells (100X) (0-5/hpf); Monocytes 3 % (0-10); Neutrophil 72 % (42-75); Platelet Morphology Comment Appears Decreased
[2021-01-13] MEDS: levETIRAcetam 500 mg/5 ml Oral Solution PO SCH ×2 (08:13→20:42)
[2021-01-13] MEDS: Potassium Chloride 40 MEQ in Sodium Chloride 0.9% 250 ML 250 ML IVPB SCH ×2 (10:47→16:11)
[2021-01-14 05:38] LABS: Anion Gap 9 mmol/L (10-20); BUN (Urea Nitrogen) 16 mg/dL (9.8-20.1); Calc. Creatinine Clearance 83 mL/min (70-130); Calcium 8.5 mg/dL (7.8-10.44); Carbon Dioxide 34 mmol/L (23-31); Chloride 101 mmol/L (98-107); Glucose 160 mg/dL (80-115); Sodium 141 mmol/L (136-145)
[2021-01-14 05:41] LABS: Potassium 2.9 mmol/L (3.5-5.1)
[2021-01-14] MEDS: Hydrocortisone Sod Succ/PF 100 mg/2 ml Vial IVP SCH ×4 (05:46→23:24)
[2021-01-14] MEDS: Furosemide 40 MG/4 ML VIAL SLOW IVP SCH ×2 (06:02→14:33)
[2021-01-14] MEDS: Potassium Chloride 40 MEQ in Sodium Chloride 0.9% 250 ML 250 ML IVPB SCH ×2 (06:02→11:34)
[2021-01-14] MEDS: levETIRAcetam 500 mg/5 ml Oral Solution PO SCH ×2 (09:48→20:54)
[2021-01-14] MEDS ORDERED: Magnesium 2 GM/50 ML 2 GM in Premix Bag 1 BAG IVPB SCH (16:15)
[2021-01-14 21:42] LABS: Potassium 5.1 mmol/L (3.5-5.1)
[2021-01-15 05:23] LABS: #Monocytes 0.2 thou/uL (0.11-0.59); #Neutrophils 2.6 thou/uL (1.40-6.50); %Basophils 0.3 % (0.0-1.0); %Eosinophils 0.1 % (0.0-10.0); %Lymphocytes 27.1 % (21.0-51.0); %Monocytes 4.1 % (0.0-10.0); %Neutrophils 68.3 % (42.0-75.0); Hemoglobin 13.6 g/dL (12.0-16.0); Mean Corpuscular HGB CONC 32.5 g/dL (32.0-36.0); Mean Corpuscular Hemoglobin 35.8 pg (27.0-31.0); Platelet Count 88 thou/uL (130-400); RBC Distribution Width 13.7 % (11.5-14.5); Red Blood Cell (RBC) Count 3.81 mill/uL (4.20-5.40); White Blood Cell (WBC) Count 3.8 thou/uL (4.8-10.8)
[2021-01-15] MEDS: Hydrocortisone Sod Succ/PF 100 mg/2 ml Vial IVP SCH ×3 (05:36→18:39)
[2021-01-15 05:41] LABS: Anion Gap 8 mmol/L (10-20); BUN (Urea Nitrogen) 15 mg/dL (9.8-20.1); Calc. Creatinine Clearance 92 mL/min (70-130); Calcium 8.7 mg/dL (7.8-10.44); Carbon Dioxide 33 mmol/L (23-31); Chloride 102 mmol/L (98-107); Glucose 183 mg/dL (80-115); Magnesium 2.3 mg/dL (1.6-2.6); Potassium 4.3 mmol/L (3.5-5.1); Sodium 139 mmol/L (136-145)
[2021-01-15] MEDS: Furosemide 40 MG/4 ML VIAL SLOW IVP SCH ×2 (06:44→18:39)
[2021-01-15] MEDS ORDERED: Communication Order-Pharmacy FS SCH (07:30)
[2021-01-15] MEDS ORDERED: Heparin 10,000 UNITS/ 10 ML VIAL ONE (07:49)
[2021-01-15] MEDS ORDERED: Lidocaine 1% (PF) 30 ML VIAL ONE (07:50)
[2021-01-15] MEDS ORDERED: Verapamil 5 MG/2 ML VIAL ONE (07:50)
[2021-01-15] MEDS ORDERED: Nitroglycerin 100MG/250ML BOT 250 ML ONE (07:50)
[2021-01-15] MEDS ORDERED: Iopamidol 370 76% 100 ML VIAL ONE (08:43)
[2021-01-15] MEDS ORDERED: Sodium Chloride 0.9% 200 ML IV PRN (09:30)
[2021-01-15] MEDS ORDERED: Acetaminophen/Codeine 30-300mg Tablet PO PRN ×2 (09:30)
[2021-01-15] MEDS ORDERED: Nitroglycerin 0.4 MG TAB (25 Tab Bottle) SL PRN (09:30)
[2021-01-15] MEDS: levETIRAcetam 500 mg/5 ml Oral Solution PO SCH ×2 (10:06→21:24)
[2021-01-15] MEDS ORDERED: methylPREDNISolone Sod Succ 40 MG VIAL ONE (18:49)
[2021-01-15] MEDS ORDERED: Hydrocortisone Sod Succ/PF 100 mg/2 ml Vial IVP SCH (19:00)
[2021-01-16] MEDS: Hydrocortisone Sod Succ/PF 100 mg/2 ml Vial IVP SCH ×4 (00:20→18:35)
[2021-01-16 05:34] LABS: Anion Gap 12 mmol/L (10-20); BUN (Urea Nitrogen) 15 mg/dL (9.8-20.1); Calc. Creatinine Clearance 92 mL/min (70-130); Calcium 8.4 mg/dL (7.8-10.44); Carbon Dioxide 27 mmol/L (23-31); Chloride 102 mmol/L (98-107); Glucose 182 mg/dL (80-115); Potassium 4.4 mmol/L (3.5-5.1); Sodium 137 mmol/L (136-145)
[2021-01-16] MEDS: Furosemide 40 MG/4 ML VIAL SLOW IVP SCH ×2 (06:50→18:20)
[2021-01-16] MEDS: levETIRAcetam 500 mg/5 ml Oral Solution PO SCH ×2 (09:55→22:26)
[2021-01-16] MEDS ORDERED: DOBUTamine 500 mg/250 ml 250 ML IVPB SCH (13:15)
[2021-01-16] MEDS: DOPamine 400 MG/D5W 250 ML 250 ML IVPB SCH (15:30)
[2021-01-17] MEDS: Hydrocortisone Sod Succ/PF 100 mg/2 ml Vial IVP SCH ×5 (00:47→23:01)
[2021-01-17] MEDS: Furosemide 40 MG/4 ML VIAL SLOW IVP SCH ×2 (06:44→16:39)
[2021-01-17] MEDS: levETIRAcetam 500 mg/5 ml Oral Solution PO SCH ×2 (08:11→19:41)
[2021-01-17 09:20] LABS: #Lymphocytes 1.2 thou/uL (1.20-3.40); #Monocytes 0.3 thou/uL (0.11-0.59); #Neutrophils 5.7 thou/uL (1.40-6.50); %Basophils 0.6 % (0.0-1.0); %Eosinophils 0.1 % (0.0-10.0); %Lymphocytes 16.5 % (21.0-51.0); %Monocytes 3.6 % (0.0-10.0); %Neutrophils 79.3 % (42.0-75.0); Hemoglobin 16.8 g/dL (12.0-16.0); Mean Corpuscular Hemoglobin 35.2 pg (27.0-31.0); Mean Platelet Volume 8.3 fL (7.4-10.4); Platelet Count 115 thou/uL (130-400); RBC Distribution Width 13.4 % (11.5-14.5); Red Blood Cell (RBC) Count 4.78 mill/uL (4.20-5.40); White Blood Cell (WBC) Count 7.2 thou/uL (4.8-10.8)
[2021-01-17 09:36] LABS: BUN (Urea Nitrogen) 11 mg/dL (9.8-20.1); Calc. Creatinine Clearance 87 mL/min (70-130); Calcium 8.7 mg/dL (7.8-10.44); Glucose 229 mg/dL (80-115)
[2021-01-17 09:42] LABS: Chloride 93 mmol/L (98-107); Potassium 2.6 mmol/L (3.5-5.1); Sodium 139 mmol/L (136-145)
[2021-01-17 09:45] LABS: Anion Gap 16 mmol/L (10-20); Carbon Dioxide 33 mmol/L (23-31)
[2021-01-17] MEDS ORDERED: Potassium Chloride 20 MEQ TAB PO SCH (10:15)
[2021-01-17 11:42] LABS: Magnesium 1.6 mg/dL (1.6-2.6)
[2021-01-17] MEDS ORDERED: Potassium Bicarbonate/Cit Ac 20 MEQ TAB PO SCH ×2 (14:00→23:15)
[2021-01-17] MEDS: DOPamine 400 MG/D5W 250 ML 250 ML IVPB SCH (15:29)
[2021-01-17 18:10] LABS: Bacteria/HPF 3+ HPF (None Seen); Bilirubin Negative (Negative); Blood, Urine Negative (Negative); Clarity Clear (Clear); Glucose, Urine (Dipstick) 50 mg/dL (Negative); Ketone, Urine Negative (Negative); Leukocyte 75 Leu/uL (Negative); Nitrite Negative (Negative); Protein, Urine (Dipstick) Negative (Neg-Trace); RBC/HPF 0-3 HPF (0-3); Specific Gravity, Urine 1.008 (1.002-1.036); Squamous Epithelial 0-3 HPF (0-3); Urobilinogen Normal mg/dL (Less than 2)
[2021-01-17 18:12] LABS: Urine Culture Reflex Yes Yes
[2021-01-17 19:48] LABS: Potassium 3.4 mmol/L (3.5-5.1)
[2021-01-17] MEDS: cefTRIAXone\\ROCEPHIN 1 GM in Sodium Chloride 0.9% 100 ML IVPB SCH (23:09)
[2021-01-18] MEDS: Hydrocortisone Sod Succ/PF 100 mg/2 ml Vial IVP SCH ×4 (04:42→23:21)
[2021-01-18] MEDS: Furosemide 40 MG/4 ML VIAL SLOW IVP SCH ×2 (04:42→16:03)
[2021-01-18 05:57] LABS: BUN (Urea Nitrogen) 10 mg/dL (9.8-20.1); Calc. Creatinine Clearance 86 mL/min (70-130); Calcium 8.5 mg/dL (7.8-10.44); Glucose 258 mg/dL (80-115)
[2021-01-18 06:06] LABS: Anion Gap 15 mmol/L (10-20); Carbon Dioxide 39 mmol/L (23-31); Chloride 89 mmol/L (98-107); Sodium 140 mmol/L (136-145)
[2021-01-18 06:07] LABS: Potassium 2.8 mmol/L (3.5-5.1)
[2021-01-18] MEDS: Potassium Bicarbonate/Cit Ac 20 MEQ TAB PO SCH ×2 (07:11→10:58)
[2021-01-18] MEDS: levETIRAcetam 500 mg/5 ml Oral Solution PO SCH ×2 (08:23→19:44)
[2021-01-18] MEDS: Magnesium Oxide 400 MG TAB PO SCH (08:32)
[2021-01-18] MEDS: DOPamine 400 MG/D5W 250 ML 250 ML IVPB SCH (11:39)
[2021-01-18 15:12] LABS: Potassium 2.9 mmol/L (3.5-5.1)
[2021-01-18] MEDS ORDERED: Potassium Chloride 20 MEQ TAB PO SCH (17:00)
[2021-01-18] MEDS: cefTRIAXone\\ROCEPHIN 1 GM in Sodium Chloride 0.9% 100 ML IVPB SCH (23:21)
[2021-01-19] MEDS: Furosemide 40 MG/4 ML VIAL SLOW IVP SCH ×2 (04:47→12:50)
[2021-01-19] MEDS: Hydrocortisone Sod Succ/PF 100 mg/2 ml Vial IVP SCH ×4 (04:47→23:10)
[2021-01-19] MEDS: levETIRAcetam 500 mg/5 ml Oral Solution PO SCH ×2 (09:13→21:13)
[2021-01-19] MEDS: Potassium Chloride 20 MEQ TAB PO SCH ×3 (09:13→14:17)
[2021-01-19] MEDS: Magnesium Oxide 400 MG TAB PO SCH (09:14)
[2021-01-19] MEDS: DOPamine 400 MG/D5W 250 ML 250 ML IVPB SCH (09:18)
[2021-01-19 09:20] LABS: BUN (Urea Nitrogen) 10 mg/dL (9.8-20.1); Calc. Creatinine Clearance 92 mL/min (70-130); Calcium 8.7 mg/dL (7.8-10.44); Glucose 254 mg/dL (80-115)
[2021-01-19 09:29] LABS: Anion Gap 16 mmol/L (10-20); Carbon Dioxide 40 mmol/L (23-31); Chloride 86 mmol/L (98-107); Sodium 139 mmol/L (136-145)
[2021-01-19 09:30] LABS: Potassium 2.5 mmol/L (3.5-5.1)
[2021-01-19 20:54] LABS: Potassium 3.4 mmol/L (3.5-5.1)
[2021-01-19] MEDS ORDERED: Potassium Chloride 20 MEQ TAB PO SCH (21:30)
[2021-01-19] MEDS: cefTRIAXone\\ROCEPHIN 1 GM in Sodium Chloride 0.9% 100 ML IVPB SCH (23:10)
[2021-01-20] MEDS: Hydrocortisone Sod Succ/PF 100 mg/2 ml Vial IVP SCH ×4 (05:29→21:59)
[2021-01-20 05:43] LABS: BUN (Urea Nitrogen) 10 mg/dL (9.8-20.1); Calc. Creatinine Clearance 96 mL/min (70-130); Calcium 8.7 mg/dL (7.8-10.44); Glucose 241 mg/dL (80-115)
[2021-01-20 05:52] LABS: Anion Gap 12 mmol/L (10-20); Carbon Dioxide 40 mmol/L (23-31); Chloride 90 mmol/L (98-107); Potassium 3.6 mmol/L (3.5-5.1); Sodium 138 mmol/L (136-145)
[2021-01-20] MEDS ORDERED: Spironolactone 25 MG TAB PO SCH ×2 (08:00→09:45)
[2021-01-20] MEDS: DOPamine 400 MG/D5W 250 ML 250 ML IVPB SCH (08:20)
[2021-01-20] MEDS: Magnesium Oxide 400 MG TAB PO SCH (08:21)
[2021-01-20] MEDS: levETIRAcetam 500 mg/5 ml Oral Solution PO SCH ×2 (08:23→20:25)
[2021-01-20] MEDS: Potassium Chloride 20 MEQ TAB PO SCH (08:28)
[2021-01-20] MEDS ORDERED: Enoxaparin Sodium 30 MG/0.3 ML SYRINGE SC SCH ×4 (10:03→21:00)
[2021-01-20] MEDS ORDERED: Milrinone 20 MG in Sodium Chloride 0.9% 100 ML IVPB SCH (12:00)
[2021-01-20 15:22] LABS: Magnesium 1.9 mg/dL (1.6-2.6)
[2021-01-20 16:44] LABS: Creatinine, Urine 41.75 mg/dL (47-110)
[2021-01-20] MEDS ORDERED: Magnesium 2 GM/50 ML 2 GM in Premix Bag 1 BAG IVPB SCH (20:00)
[2021-01-21] MEDS: cefTRIAXone\\ROCEPHIN 1 GM in Sodium Chloride 0.9% 100 ML IVPB SCH ×2 (01:47→23:04)
[2021-01-21] MEDS: Hydrocortisone Sod Succ/PF 100 mg/2 ml Vial IVP SCH ×4 (04:40→23:01)
[2021-01-21] MEDS: DOPamine 400 MG/D5W 250 ML 250 ML IVPB SCH (04:43)
[2021-01-21 05:06] LABS: #Lymphocytes 1.5 thou/uL (1.20-3.40); #Monocytes 0.3 thou/uL (0.11-0.59); #Neutrophils 5.3 thou/uL (1.40-6.50); %Basophils 0.4 % (0.0-1.0); %Lymphocytes 21.2 % (21.0-51.0); %Monocytes 4.1 % (0.0-10.0); %Neutrophils 74.4 % (42.0-75.0); Hemoglobin 16.6 g/dL (12.0-16.0); Mean Platelet Volume 8.5 fL (7.4-10.4); Platelet Count 82 thou/uL (130-400); RBC Distribution Width 12.7 % (11.5-14.5); Red Blood Cell (RBC) Count 4.89 mill/uL (4.20-5.40); White Blood Cell (WBC) Count 7.1 thou/uL (4.8-10.8)
[2021-01-21 06:16] LABS: BUN (Urea Nitrogen) 11 mg/dL (9.8-20.1); Calc. Creatinine Clearance 92 mL/min (70-130); Calcium 8.8 mg/dL (7.8-10.44); Glucose 235 mg/dL (80-115); Magnesium 2.2 mg/dL (1.6-2.6)
[2021-01-21 06:25] LABS: Anion Gap 12 mmol/L (10-20); Carbon Dioxide 37 mmol/L (23-31); Chloride 91 mmol/L (98-107); Potassium 3.7 mmol/L (3.5-5.1); Sodium 136 mmol/L (136-145)
[2021-01-21] MEDS: levETIRAcetam 500 mg/5 ml Oral Solution PO SCH ×2 (08:15→20:37)
[2021-01-21] MEDS: Magnesium Oxide 400 MG TAB PO SCH (08:16)
[2021-01-21] MEDS: Spironolactone 25 MG TAB PO SCH (08:17)
[2021-01-21] MEDS: Potassium Chloride 20 MEQ TAB PO SCH (08:19)
[2021-01-21] MEDS: Enoxaparin Sodium 30 MG/0.3 ML SYRINGE SC SCH (08:28)
[2021-01-21] MEDS ORDERED: Furosemide 40 MG/4 ML VIAL SLOW IVP SCH (09:45)
[2021-01-21] MEDS ORDERED: Amiodarone 150 MG, Admixture Fee 1 EACH in Dextrose 5% in Water 100 ML IVPB SCH (16:15)
[2021-01-21] MEDS: Amiodarone 450 MG in Dextrose 5% in Water 250 ML IVPB SCH (16:56)
[2021-01-22] MEDS: Amiodarone 450 MG in Dextrose 5% in Water 250 ML IVPB SCH (01:48)
[2021-01-22] MEDS: DOPamine 400 MG/D5W 250 ML 250 ML IVPB SCH (02:50)
[2021-01-22] MEDS: Hydrocortisone Sod Succ/PF 100 mg/2 ml Vial IVP SCH ×4 (04:41→23:43)
[2021-01-22] MEDS: levETIRAcetam 500 mg/5 ml Oral Solution PO SCH ×2 (09:07→20:21)
[2021-01-22] MEDS: Spironolactone 25 MG TAB PO SCH (09:08)
[2021-01-22] MEDS: Magnesium Oxide 400 MG TAB PO SCH (09:08)
[2021-01-22] MEDS: Enoxaparin Sodium 30 MG/0.3 ML SYRINGE SC SCH (09:09)
[2021-01-22] MEDS: Potassium Chloride 20 MEQ TAB PO SCH (09:09)
[2021-01-22] MEDS ORDERED: Heparin 1,000 UNITS/ML VIAL ONE (09:21)
[2021-01-22] MEDS: Amiodarone 200 MG TAB PO SCH ×3 (10:03→20:21)
[2021-01-22] MEDS ORDERED: DOPamine 400 MG/D5W 250 ML 250 ML IVPB SCH (16:35)
[2021-01-22] MEDS: cefTRIAXone\\ROCEPHIN 1 GM in Sodium Chloride 0.9% 100 ML IVPB SCH (23:42)
[2021-01-23 05:29] LABS: #Monocytes 0.2 thou/uL (0.11-0.59); #Neutrophils 5.7 thou/uL (1.40-6.50); %Basophils 0.2 % (0.0-1.0); %Eosinophils 0.1 % (0.0-10.0); %Lymphocytes 14.1 % (21.0-51.0); %Monocytes 3.4 % (0.0-10.0); %Neutrophils 82.2 % (42.0-75.0); Hemoglobin 15.5 g/dL (12.0-16.0); Mean Corpuscular HGB CONC 33.8 g/dL (32.0-36.0); Mean Corpuscular Hemoglobin 35.6 pg (27.0-31.0); Mean Platelet Volume 9.1 fL (7.4-10.4); Platelet Count 61 thou/uL (130-400); RBC Distribution Width 12.5 % (11.5-14.5); Red Blood Cell (RBC) Count 4.37 mill/uL (4.20-5.40); White Blood Cell (WBC) Count 6.9 thou/uL (4.8-10.8)
[2021-01-23 05:37] LABS: BUN (Urea Nitrogen) 9 mg/dL (9.8-20.1); Calc. Creatinine Clearance 86 mL/min (70-130); Calcium 8.8 mg/dL (7.8-10.44); Glucose 299 mg/dL (80-115); Magnesium 1.8 mg/dL (1.6-2.6)
[2021-01-23 05:46] LABS: Anion Gap 10 mmol/L (10-20); Carbon Dioxide 39 mmol/L (23-31); Chloride 90 mmol/L (98-107); Potassium 3.8 mmol/L (3.5-5.1); Sodium 135 mmol/L (136-145)
[2021-01-23] MEDS: Hydrocortisone Sod Succ/PF 100 mg/2 ml Vial IVP SCH ×4 (05:57→21:02)
[2021-01-23] MEDS ORDERED: Magnesium 2 GM/50 ML 2 GM in Premix Bag 1 BAG IVPB SCH (06:30)
[2021-01-23] MEDS: levETIRAcetam 500 mg/5 ml Oral Solution PO SCH ×2 (07:52→20:55)
[2021-01-23] MEDS: Potassium Chloride 20 MEQ TAB PO SCH (07:53)
[2021-01-23] MEDS: Amiodarone 200 MG TAB PO SCH ×3 (07:53→20:55)
[2021-01-23] MEDS: Magnesium Oxide 400 MG TAB PO SCH (07:53)
[2021-01-23] MEDS: Enoxaparin Sodium 30 MG/0.3 ML SYRINGE SC SCH (07:54)
[2021-01-23] MEDS: Spironolactone 25 MG TAB PO SCH (09:47)
[2021-01-23] MEDS ORDERED: DOPamine 400 MG/D5W 250 ML 250 ML IVPB SCH ×2 (10:15→11:00)
[2021-01-23 10:19] VITALS: BMI 25.4
[2021-01-23 14:57] LABS: SARS-CoV-2 PCR by NAA Not Detected (NotDetected)
[2021-01-23] MEDS: cefTRIAXone\\ROCEPHIN 1 GM in Sodium Chloride 0.9% 100 ML IVPB SCH (20:59)
[2021-01-24 01:11] VITALS: BP 99/57; TEMP 98.3
== END 2021-01-24 01:17 | disposition short-term general hospital (02) | DRG 286 ==
LOC: ERS 15:47 → 2SE 01-11 01:32 → OBSVTOIN 01-12 08:18
PROVIDERS: ADMIT Internal Medicine; ATTEND Internal Medicine
PROC: 4A023N7 Measurement of Cardiac Sampling and Pressure, Left Heart, Percutaneous Approach (ICD-10-PCS; principal; 2021-01-12)
PROC: B2111ZZ Fluoroscopy of Multiple Coronary Arteries using Low Osmolar Contrast (ICD-10-PCS; 2021-01-12)
PROC: B2151ZZ Fluoroscopy of Left Heart using Low Osmolar Contrast (ICD-10-PCS; 2021-01-12)
PROC: 3E033XZ Introduction of Vasopressor into Peripheral Vein, Percutaneous Approach (ICD-10-PCS; 2021-01-16)
PROC: 02HV33Z Insertion of Infusion Device into Superior Vena Cava, Percutaneous Approach (ICD-10-PCS; 2021-01-22)
PROC: B548ZZA Ultrasonography of Superior Vena Cava, Guidance (ICD-10-PCS; 2021-01-22)
DX: I50.23 Acute on chronic systolic (congestive) heart failure (principal); J96.00 Acute respiratory failure, unspecified whether with hypoxia or hypercapnia; Z20.822 Contact with and (suspected) exposure to COVID-19; R57.0 Cardiogenic shock; N39.0 Urinary tract infection, site not specified; E87.3 Alkalosis; I48.92 Unspecified atrial flutter; I42.8 Other cardiomyopathies; G40.909 Epilepsy, unspecified, not intractable, without status epilepticus; D69.6 Thrombocytopenia, unspecified; Z96.641 Presence of right artificial hip joint; Z96.612 Presence of left artificial shoulder joint; I08.1 Rheumatic disorders of both mitral and tricuspid valves; D72.819 Decreased white blood cell count, unspecified; D75.89 Other specified diseases of blood and blood-forming organs; R94.5 Abnormal results of liver function studies; E87.6 Hypokalemia; B96.1 Klebsiella pneumoniae [K. pneumoniae] as the cause of diseases classified elsewhere; E83.42 Hypomagnesemia; I48.0 Paroxysmal atrial fibrillation; Z79.899 Other long term (current) drug therapy; Z79.891 Long term (current) use of opiate analgesic; Z90.710 Acquired absence of both cervix and uterus; Z82.49 Family history of ischemic heart disease and other diseases of the circulatory system
CPT/HCPCS: 36415; 36569; 71045; 71250; 76705; 80048; 80053; 80061; 80076; 80307; 81001; 82024; 82533; 82570; 82607; 82728; 82746; 83540; 83550; 83735; 83880; 84133; 84443; 84466; 84484; 85025; 86140; 87077; 87086; 87186; 93306; 93458; 93798; 93970; 93975; 94760; 96374; 96375; 96376; C1751; G0378; J0282; J0696; J1250; J1265; J1644; J1650; J1720; J1940; J2001; J2260; J3370; J3475; J3480; J3490; J7050; J7070; Q9967; U0003; U0005